=== PATIENT | female | born 1995 | race Caucasian/White ===

== ENCOUNTER 2017-11-26 13:36 | Inpatient (IN) | payer BC ==
[2017-11-26 14:09] LABS: ADD UMIC YES; UR ASCORBIC ACID 40 mg/dL (NEGATIVE); UR BACTERIA FEW /HPF (NONE SEEN); UR BILIRUBIN (Dip) NEGATIVE (NEGATIVE); UR BLOOD (Dip) NEGATIVE (NEGATIVE); UR CLARITY SLIGHTLY CLOUDY (CLEAR); UR COLOR YELLOW (YELLOW); UR GLUCOSE (Dip) NEGATIVE (NEGATIVE); UR KETONES (Dip) NEGATIVE (NEGATIVE); UR LEUKOCYTE ESTERASE (Dip) TRACE Leu/ul (NEGATIVE); UR NITRITE (Dip) NEGATIVE (NEGATIVE); UR RBC 6 /HPF (0-5); UR SPECIFIC GRAVITY (Dip) 1.014 (1.003-1.030); UR SQUAMOUS EPITHELIAL CELL FEW /HPF (FEW); UR TOTAL PROTEIN (Dip) 1+ mg/dl (NEGATIVE); UR UROBILINOGEN (Dip) NEGATIVE (NEGATIVE); UR WBC 9 /HPF (0-5)
[2017-11-26 14:13] LABS: ADD MAN DIFF? NO
[2017-11-26 14:15] LABS: WHITE BLOOD COUNT 8.9 10^3/ul (4.8-10.8)
[2017-11-26 14:15] LABS: BASOPHILS % 0.2 % (0.0-2.0); EOSINOPHILS % 0.3 % (0.0-7.0); HEMATOCRIT 34.8 % (37.0-47.0); HEMOGLOBIN 12.2 g/dl (12.0-16.0); LYMPHOCYTES # 1.7 10^3/ul (0.8-2.9); LYMPHOCYTES % 19.2 % (18.0-55.0); MEAN CORPUSCULAR HEMOGLOBIN 30.7 pg (29.0-33.0); MEAN CORPUSCULAR HGB CONC 35.1 g/dl (32.0-37.0); MEAN CORPUSCULAR VOLUME 87.4 fl (72.0-104.0); MEAN PLATELET VOLUME 11.6 fl (7.4-10.4); MONOCYTE # 0.6 10^3/ul (0.3-0.9); NEUTROPHIL # 6.5 10^3/ul (1.6-7.5); NEUTROPHILS % 72.6 % (30.0-74.0); PLATELET COUNT 170 10^3/UL (140-415); RED BLOOD COUNT 3.98 10^6/ul (4.20-5.40); RED CELL DISTRIBUTION WIDTH 12.4 % (11.5-14.5)
[2017-11-26 14:33] LABS: ALANINE AMINOTRANSFERASE 23 IU/L (13-69); ALBUMIN 3.3 g/dl (3.3-4.9); ALBUMIN/GLOBULIN RATIO 1.13; ALKALINE PHOSPHATASE 155 IU/L (42-121); ANION GAP 11 (8-16); ASPARTATE AMINO TRANSFERASE 29 IU/L (15-46); BILIRUBIN,INDIRECT 0.2 mg/dl (0-1.1); BILIRUBIN,TOTAL 0.2 mg/dl (0.2-1.3); BLOOD UREA NITROGEN 9 mg/dl (7-20); CALCIUM 9.2 mg/dl (8.4-10.2); CARBON DIOXIDE 22 mmol/L (21-31); CHLORIDE 110 mmol/L (97-110); CREATININE 0.56 mg/dl (0.44-1.00); GLUCOSE 100 mg/dl (70-220); POTASSIUM 3.8 mmol/L (3.5-5.1); SODIUM 139 mmol/L (135-144); TOTAL PROTEIN 6.2 g/dl (6.1-8.1); URIC ACID 3.7 mg/dl (3.1-7.9)
[2017-11-26 14:49] LABS: INR 0.92; PROTIME 12.4 Sec (11.9-14.9)
[2017-11-26 14:50] LABS: PARTIAL THROMBOPLASTIN TIME 26.5 Sec (25.0-35.0)
[2017-11-26] MEDS: LACTATED RINGER'S 1,000 ML IV ×2 (16:26→22:02)
[2017-11-26] MEDS: MAGNESIUM SULFATE 4 GM/100 ML 100 ML IV (21:09)
[2017-11-26] MEDS: MAGNESIUM SULFATE 20 GM/500 ML 500 ML IV (21:39)
[2017-11-26] MEDS: BETAMET NA PHOS/AC(6 MG/ML) 5ML INJ IM (22:02)
[2017-11-27 01:45] LABS: MAGNESIUM 4.8 mg/dl (1.7-2.5)
[2017-11-27] MEDS ORDERED: MAGNESIUM SULFATE 4 GM/100 ML 100 ML (06:20)
[2017-11-27] MEDS: MAGNESIUM SULFATE 20 GM/500 ML 500 ML IV ×2 (07:16→18:41)
[2017-11-27] MEDS: PRENATAL VITAMIN PO (09:24)
[2017-11-27] MEDS ORDERED: LABETALOL HCL 20MG INJ IV (10:30)
[2017-11-27] MEDS ORDERED: CARBOPROST 250 MCG INJ IM ×2 (11:00→17:00)
[2017-11-27] MEDS: LABETALOL HCL 20MG INJ IV (11:00)
[2017-11-27] MEDS ORDERED: MISOPROSTOL 200 MCG TAB PR ×2 (11:00→17:00)
[2017-11-27] MEDS ORDERED: CEFAZOLIN 2 GM/50 ML (PMX) 50 ML IV (11:00)
[2017-11-27] MEDS ORDERED: OXYTOCIN 30 UNITS/LR 500 ML IV ×3 (11:00→17:11)
[2017-11-27] MEDS ORDERED: METHYLERGONOVINE 0.2 MG INJ IM ×2 (11:00→17:00)
[2017-11-27] MEDS ORDERED: CITRIC ACID/SODIUM CITRATE 15 ML CUP (11:13)
[2017-11-27] MEDS ORDERED: METOCLOPRAMIDE 10 MG INJ (11:14)
[2017-11-27] MEDS ORDERED: FAMOTIDINE 20 MG INJ (11:14)
[2017-11-27 11:17] LABS: ADD MAN DIFF? NO
[2017-11-27 11:21] LABS: BASOPHILS % 0.2 % (0.0-2.0); HEMOGLOBIN 12.7 g/dl (12.0-16.0); LYMPHOCYTES # 1.7 10^3/ul (0.8-2.9); LYMPHOCYTES % 14.6 % (18.0-55.0); MEAN CORPUSCULAR HEMOGLOBIN 31.1 pg (29.0-33.0); MEAN CORPUSCULAR HGB CONC 35.3 g/dl (32.0-37.0); MEAN PLATELET VOLUME 12.4 fl (7.4-10.4); MONOCYTE # 0.3 10^3/ul (0.3-0.9); MONOCYTES % 2.5 % (0.0-13.0); NEUTROPHIL # 9.3 10^3/ul (1.6-7.5); NEUTROPHILS % 81.1 % (30.0-74.0); PLATELET COUNT 191 10^3/UL (140-415); RED BLOOD COUNT 4.09 10^6/ul (4.20-5.40); RED CELL DISTRIBUTION WIDTH 12.4 % (11.5-14.5)
[2017-11-27 11:21] LABS: WHITE BLOOD COUNT 11.5 10^3/ul (4.8-10.8)
[2017-11-27] MEDS: LACTATED RINGER'S 1,000 ML IV ×2 (11:22→16:49)
[2017-11-27] MEDS: CITRIC ACID/SODIUM CITRATE 15 ML CUP PO (11:22)
[2017-11-27] MEDS: FAMOTIDINE 20 MG INJ IV (11:22)
[2017-11-27] MEDS: METOCLOPRAMIDE 10 MG INJ IV (11:22)
[2017-11-27 12:05] LABS: INR 0.93; PARTIAL THROMBOPLASTIN TIME 25.8 Sec (25.0-35.0); PROTIME 12.6 Sec (11.9-14.9)
[2017-11-27 12:11] LABS: HEPATITIS B SURFACE ANTIGEN NEGATIVE (NEGATIVE)
[2017-11-27] MEDS: OXYTOCIN 30 UNITS/LR 500 ML IV ×2 (13:22→21:01)
[2017-11-27 13:41] LABS: MAGNESIUM 4.6 mg/dl (1.7-2.5)
[2017-11-27] MEDS ORDERED: NALBUPHINE HCL (10 MG/1 ML) INJ IV (14:00)
[2017-11-27] MEDS ORDERED: ONDANSETRON 4 MG INJ IV ×2 (14:00→17:00)
[2017-11-27] MEDS ORDERED: ZOLPIDEM 5 MG TAB PO ×2 (14:00→17:00)
[2017-11-27] MEDS ORDERED: HYDROmorphONE 0.5 MG/0.5 ML SYG IV ×2 (14:00)
[2017-11-27] MEDS ORDERED: DIPHENHYDRAMINE 50 MG INJ IV ×2 (14:00→17:00)
[2017-11-27] MEDS ORDERED: NALOXONE (0.4 MG/ML) INJ IV (14:00)
[2017-11-27 15:24] LABS: RAPID PLASMA REAGIN NONREACTIVE (NR)
[2017-11-27] MEDS ORDERED: ONDANSETRON 4 MG INJ (17:11)
[2017-11-27] MEDS ORDERED: PHENYLephrine (100 MCG/ML) 5ML SYG (17:11)
[2017-11-27] MEDS ORDERED: DEXAMETHASONE 4 MG/ML 1 ML INJ (17:11)
[2017-11-27] MEDS ORDERED: FENTAnyl 50 MCG/ML VIAL (17:11)
[2017-11-27] MEDS ORDERED: morphine SULFATE/PF (10 MG/10 ML) INJ (17:11)
[2017-11-27] MEDS ORDERED: BUPIVACAINE 0.75%/DEXT (SPINAL) 2 ML INJ (17:11)
[2017-11-27] MEDS: IBUPROFEN 600 MG TAB PO (18:00)
[2017-11-27 18:46] LABS: MAGNESIUM 5.9 mg/dl (1.7-2.5)
[2017-11-27] MEDS: SENNA/DOCUSATE NA (8.6MG/50MG) TAB PO (21:00)
[2017-11-28 00:25] LABS: MAGNESIUM 6.7 mg/dl (1.7-2.5)
[2017-11-28] MEDS: LACTATED RINGER'S 1,000 ML IV ×2 (00:49→04:53)
[2017-11-28] MEDS: MAGNESIUM SULFATE 20 GM/500 ML 500 ML IV (04:53)
[2017-11-28] MEDS: IBUPROFEN 600 MG TAB PO ×4 (05:28→17:45)
[2017-11-28 06:58] LABS: ADD MAN DIFF? NO
[2017-11-28 07:02] LABS: BASOPHILS % 0.2 % (0.0-2.0); HEMATOCRIT 30.3 % (37.0-47.0); HEMOGLOBIN 10.6 g/dl (12.0-16.0); LYMPHOCYTES # 1.4 10^3/ul (0.8-2.9); LYMPHOCYTES % 8.8 % (18.0-55.0); MEAN CORPUSCULAR HEMOGLOBIN 30.9 pg (29.0-33.0); MEAN CORPUSCULAR VOLUME 88.3 fl (72.0-104.0); MEAN PLATELET VOLUME 12.2 fl (7.4-10.4); MONOCYTES % 6.6 % (0.0-13.0); NEUTROPHIL # 12.9 10^3/ul (1.6-7.5); NEUTROPHILS % 83.5 % (30.0-74.0); PLATELET COUNT 170 10^3/UL (140-415); RED BLOOD COUNT 3.43 10^6/ul (4.20-5.40); RED CELL DISTRIBUTION WIDTH 12.5 % (11.5-14.5)
[2017-11-28 07:02] LABS: WHITE BLOOD COUNT 15.5 10^3/ul (4.8-10.8)
[2017-11-28 07:21] LABS: MAGNESIUM 6.9 mg/dl (1.7-2.5)
[2017-11-28] MEDS: SENNA/DOCUSATE NA (8.6MG/50MG) TAB PO ×2 (08:50→19:59)
[2017-11-28] MEDS: KETOROLAC 30 MG INJ IV (09:46)
[2017-11-28] MEDS: LANOLIN 7 GM TUBE TOP (12:18)
[2017-11-28 12:55] LABS: MAGNESIUM 7.1 mg/dl (1.7-2.5)
[2017-11-28] MEDS: OXYCODONE/ACETAMINOPHEN (5/325) TAB PO (19:59)
[2017-11-29] MEDS: IBUPROFEN 600 MG TAB PO ×5 (00:18→23:37)
[2017-11-29] MEDS: OXYCODONE/ACETAMINOPHEN (5/325) TAB PO ×3 (05:12→19:08)
[2017-11-29] MEDS: LACTATED RINGER'S 1,000 ML IV ×2 (06:38)
[2017-11-29] MEDS: SENNA/DOCUSATE NA (8.6MG/50MG) TAB PO ×2 (10:25→21:12)
[2017-11-29 18:47] LABS: ADD MAN DIFF? NO
[2017-11-29 18:49] LABS: WHITE BLOOD COUNT 13.4 10^3/ul (4.8-10.8)
[2017-11-29 18:49] LABS: BASOPHILS % 0.1 % (0.0-2.0); EOSINOPHILS # 0.1 10^3/ul (0.0-0.5); EOSINOPHILS % 0.4 % (0.0-7.0); HEMATOCRIT 31.5 % (37.0-47.0); HEMOGLOBIN 10.6 g/dl (12.0-16.0); LYMPHOCYTES # 2.4 10^3/ul (0.8-2.9); MEAN CORPUSCULAR HEMOGLOBIN 30.6 pg (29.0-33.0); MEAN CORPUSCULAR HGB CONC 33.7 g/dl (32.0-37.0); MEAN PLATELET VOLUME 11.4 fl (7.4-10.4); MONOCYTES % 7.6 % (0.0-13.0); NEUTROPHIL # 9.7 10^3/ul (1.6-7.5); NEUTROPHILS % 72.6 % (30.0-74.0); PLATELET COUNT 197 10^3/UL (140-415); RED BLOOD COUNT 3.46 10^6/ul (4.20-5.40); RED CELL DISTRIBUTION WIDTH 13.1 % (11.5-14.5)
[2017-11-30] MEDS: OXYCODONE/ACETAMINOPHEN (5/325) TAB PO ×4 (02:01→21:21)
[2017-11-30] MEDS: IBUPROFEN 600 MG TAB PO ×3 (05:28→18:11)
[2017-11-30] MEDS: SENNA/DOCUSATE NA (8.6MG/50MG) TAB PO ×2 (09:26→21:17)
[2017-11-30] MEDS: DIPHTH/TET/ACEL PERTUSS (ADULT) 0.5 ML VIAL IM* (09:27)
[2017-12-01] MEDS: IBUPROFEN 600 MG TAB PO ×3 (00:13→12:15)
[2017-12-01] MEDS: OXYCODONE/ACETAMINOPHEN (5/325) TAB PO (08:42)
[2017-12-01] MEDS: SENNA/DOCUSATE NA (8.6MG/50MG) TAB PO (08:42)
== END 2017-12-01 17:59 | disposition home or self-care (01) | DRG 766 ==
LOC: OBT 13:36 → L-D 13:36 → OBT 15:00 → L-D 15:00 → PP1 11-27 16:30
PROC: 10D00Z1 Extraction of Products of Conception, Low, Open Approach (ICD-10-PCS; principal; 2017-11-27 12:45)
PROC: 3E033VJ Introduction of Other Hormone into Peripheral Vein, Percutaneous Approach (ICD-10-PCS; 2017-11-27 12:45)
DX: O60.14X0 Preterm labor third trimester with preterm delivery third trimester, not applicable or unspecified (principal); O13.4 Gestational [pregnancy-induced] hypertension without significant proteinuria, complicating childbirth; Z3A.36 36 weeks gestation of pregnancy; Z37.0 Single live birth
CPT/HCPCS: 76818; 80053; 81001; 83735; 84560; 85025; 85384; 85610; 85730; 86592; 86850; 86900; 86901; 87340; 99464